=== PATIENT | female | born 1940 | race African-American/Black ===

== ENCOUNTER → 2016-12-08 | Outpatient (CLI) | payer OTHER ==
--- NOTE | ~2016-12-08 | CT71 ---
[facility] A Service of [facility] RADIOLOGY TEXT RESULTS PATIENT: CHAD CHI LOCATION: [facility] : 44 UNIT #: [id number] AGE: [address]: Nava Otero MD SEX: F ORDER DR: [id number] [place], [place] [address] [id number] O MR#: [id number] Acc #: [id number] NAME: CHAD CHI : 1940 SEX: F STUDY DATE/TIME: 12/08/2016 14:47 UNIT: [facility] ROOM: STUDY DESCRIPTION: CT Head Wo Contrast Attending Physician: Nava Otero M.D. Referring Physician: Nava Otero M.D. Ordering Physician: Nava Otero M.D. Primary Care Physician: Nava Otero M.D. MEDICAL IMAGING REPORT This report is preliminary unless electronic signature is present EXAM Head CT without contrast DATE OF STUDY 12/08/2016 COMPARISON STUDIES None HISTORY 1-2 year history of memory loss, vertigo and dizziness. PROCEDURE Axial unenhanced head CT. This CT exam was performed with one or more of the following radiation dose reduction techniques: automatic exposure control, adjustment of mA and/or kV according to patient size, and iterative reconstruction. FINDINGS Brain parenchymal density is normal. There is no hemorrhage or mass or hydrocephalus or extraaxial fluid collection. The extracranial soft tissues are normal. Skull base and calvarium are normal except for slight ethmoid and maxillary sinus mucosal thickening and right sphenoid mucosal thickening but no air-fluid levels are seen. IMPRESSION Mild paranasal sinus mucosal thickening. Otherwise normal negative unenhanced head CT. Dictated by... Cortez Chen M.D. [facility] A Service [facility] RADIOLOGY TEXT RESULTS PATIENT: CHAD CHI LOCATION: [facility] : 44 UNIT #: [id number] AGE: [address]: Nava Otero MD SEX: F ORDER DR: THIS IS AN ELECTRONICALLY VERIFIED REPORT Cortez Chen M.D. at 12/10/2016 1:23 PM TUAN/tyrell TD: 12/08/2016 18:35 JOB #: [id number] MEDICAL IMAGING REPORT Page 1 of 1 COPY
[2016-12-08 14:10] LABS: POC - CREATININE 0.72 mg/dL (0.44-1.03); POC - GFR >60.0 mL/min (>60)
== END | disposition home or self-care (01) ==
LOC: CCAT 13:03
PROVIDERS: Family Medicine
DX: R41.3 Other amnesia (principal); E66.3 Overweight; J34.89 Other specified disorders of nose and nasal sinuses; Z68.28 Body mass index [BMI] 28.0-28.9, adult
CPT/HCPCS: 70450; 82565